=== PATIENT | male | born 1965 | race Caucasian/White ===

== ENCOUNTER 2016-06-11 19:04 | Emergency (ER) | payer MEDICAID ==
[2016-06-11 19:14] VITALS: BP 120/81; PULSE 66; RESP 16; TEMP 97.9; O2SAT 96
== END 2016-06-11 20:30 | disposition left against medical advice (07) ==
LOC: CED 19:04
DX: K08.9 Disorder of teeth and supporting structures, unspecified (principal); Z53.21 Procedure and treatment not carried out due to patient leaving prior to being seen by health care provider

== ENCOUNTER 2016-07-23 10:00 | Day surgery (SDC) | payer MEDICAID ==
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
[2016-07-23] MEDS ORDERED: LIDOCAINE 2% JELLY 20 ML (UROJECT) ONE (10:12)
[2016-07-23] MEDS ORDERED: LR 1,000 ML IV ONE (10:44)
[2016-07-23] MEDS ORDERED: LIDOCAINE 1% 5 ML SDV ID PRN (10:44)
[2016-07-23] MEDS ORDERED: LIDOCAINE 1% 2 ML INJ ONE (10:49)
[2016-07-23] MEDS ORDERED: D5W LR 1,000 ML IV SCH (11:00)
[2016-07-23] MEDS ORDERED: ceFAZolin 2 GM/DEXTROSE 100 ML IV ONE (11:00)
[2016-07-23] MEDS ORDERED: MIDAZOLAM 2 MG/2 ML VIAL ONE (11:53)
[2016-07-23] MEDS ORDERED: fentaNYL 250 MCG/5 ML INJ ONE (11:59)
[2016-07-23] MEDS ORDERED: PROPOFOL 200 MG/20 ML VIAL ONE ×3 (11:59→12:12)
[2016-07-23] MEDS ORDERED: ROCURONIUM 50 MG/5 ML VIAL ONE (12:12)
[2016-07-23] MEDS ORDERED: GLYCOPYRROLATE 0.2 MG/1 ML VIAL ONE ×2 (13:46→13:50)
[2016-07-23] MEDS ORDERED: NEOSTIGMINE METHYLSULFATE 5 MG/5 ML SYR ONE (13:46)
[2016-07-23] MEDS ORDERED: ONDANSETRON 4 MG/2 ML VIAL ONE (13:51)
[2016-07-23] MEDS ORDERED: DEXAMETHASONE 4 MG/ML VIAL ONE (13:51)
--- NOTE | 2016-07-23 14:11 | GOP ---
[f rep st] OPERATIVE REPORT DATE OF OPERATION: 07/23/2016 SURGEON: Remi Castrejon MD ANESTHESIA: General anesthesia. ANESTHESIOLOGIST: Dr. Mortensen PREOPERATIVE DIAGNOSIS: Bladder calculi with foreign body. POSTOPERATIVE DIAGNOSIS: Bladder calculi with foreign body. PROCEDURE PERFORMED: Laser lithotripsy of the stone, and extraction of the foreign body and the sto ne. FINDINGS: DESCRIPTION OF PROCEDURE: After general anesthesia and appropriate time-out, he had the cystoscope passed to his bladder. He had did have some meatal stenosis that was dilated so it could accommodat e the 22-Turkmen cystoscope. At that point, I used a holmium laser set at 15 pulses per second, 24 w atts and laser time was 1 hour 20 minutes. Total energy was 79,252 joules. I extracted the magneti c male urethral dildo from the bladder, and then all the stones were extracted with the [employer] evacua tor. At the end of the procedure, there was no significant trauma to the bladder, no perforation of the bladder, ureteral orifices are normal and there are no residual stones. Uro-Jet placed in his urethra, and Martínez catheter placed. He will be discharged home, to have follow up with me in the of [facility] in 1 month. No complications. Specimens sent to Pathology. /[id number]/MODL
[2016-07-28 18:24] LABS: SOURCE OF STONE BLADDER
[2016-07-28 18:25] LABS: NIDUS NOT OBSERVED
== END 2016-07-23 15:50 | disposition home health service (06) ==
LOC: FSGY 10:00
PROVIDERS: ATTEND Specialist
PROC: 0TPB8DZ Removal of Intraluminal Device from Bladder, Via Natural or Artificial Opening Endoscopic (ICD-10-PCS; principal; 2016-07-23 11:45)
PROC: 0TCB8ZZ Extirpation of Matter from Bladder, Via Natural or Artificial Opening Endoscopic (ICD-10-PCS; principal; 2016-07-23 11:45)
DX: N21.0 Calculus in bladder (principal); T19.0XXA Foreign body in urethra, initial encounter; K21.9 Gastro-esophageal reflux disease without esophagitis; F17.200 Nicotine dependence, unspecified, uncomplicated
CPT/HCPCS: 82365-90; J0690; J1100; J2250; J2405; J2704; J2710; J3010

== ENCOUNTER 2016-11-12 18:08 | Emergency (ER) | payer MEDICAID ==
--- NOTE | 2016-11-12 18:15 | EDPHY ---
H & P HPI/ROS: HPI CHIEF COMPLAINT: Dental pain HISTORY OF PRESENT ILLNESS: This patient is a 51-year-old male, he presents emergency room requesting pain control for his decaying right upper tooth. He is due to have a root canal on the 5th. States he has been taking too much ibuprofen it is upsetting his stomach. He is requesting a stronger pain medicine. Unable to sleep. Denies any fever, throat pain or trouble swallowing. Denies any daily medical history. Past Medical History: Denies significant medical history Past Surgical History: Denies significant surgical history Social History: Denies alcohol, drugs does smoke tobacco. Family History: Noncontributory ROS REVIEW OF SYSTEMS: A comprehensive 10 point review of systems is otherwise negative aside from elements mentioned in the history of present illness. Exam Constitutional triage nursing summary reviewed, vital signs reviewed, awake/ alert. Eyes normal conjunctivae and sclera, EOMI, PERRLA. HENT oropharynx: Right upper dental pain. Under right-sided upper jaw line there is a premolar, tooth 6. Decayed. Fractured normal inspection, atraumatic , moist mucus membranes, no epistaxis, neck supple/ no meningismus, no raccoon eyes. Respiratory clear to auscultation bilaterally, normal breath sounds, no respiratory distress, no wheezing. Cardiovascular rate normal, regular rhythm, no murmur, no edema, distal pulses normal. Gastrointestinal soft, non-tender, no rebound, no guarding, normal bowel sounds, no distension, no pulsatile mass. Genitourinary no CVA tenderness. Musculoskeletal no midline vertebral tenderness, full range of motion, no calf swelling, no tenderness of extremities, no meningismus, good pulses, neurovascularly intact. Skin pink, warm, & dry, no rash, skin atraumatic. Neurologic awake, alert and oriented x 3, AAOx3, moves all 4 extremities equally, motor intact, sensory intact, CN II-XII intact, normal cerebellar, normal vision, normal speech. Psychiatric normal mood/affect. Heme/Lymph/Immune no lymphadenopathy. Differential Diagnosis: Includes but is not limited to in a particular order dental decay, dental caries, apical abscess, pulpitis Medical Decision Making: Plan for this patient pain control. Era prescription given. He understands this is a limited supply of narcotic pain medicine. And then emergency rooms do not distribute narcotic pain medicine I do recommend he follows up with his dentist or primary care doctor. He understands this. Source: Patient - Personal History Tetanus Vaccine Date: < 10 years - Medical/Surgical History Hx Asthma: No Hx Chronic Respiratory Disease: No Hx Diabetes: No Hx Cardiac Disease: No Hx Renal Disease: No Hx Cirrhosis: No Hx Alcoholism: No Hx HIV/AIDS: No Hx Splenectomy or Spleen Trauma: No Other PMH: LEFT SHOULDER PAIN. TOOTH REMOVAL -- AT [facility]. Acid reflux, Chronic UTI, urethral blockage - Social History Smoking Status: Heavy smoker Constitutional: Initial Vital Signs Temperature (C) 36.7 C 11/12/16 18:10 Heart Rate 117 H 11/12/16 18:10 Respiratory Rate 16 11/12/16 18:10 Blood Pressure 147/91 H 11/12/16 18:10 O2 Sat (%) 95 11/12/16 18:10 O2 Delivery Mode Room Air Allergies/Adverse Reactions: haloperidol [From Haldol] Allergy (Severe, Verified 07/08/16 16:00) tongue swelling haloperidol lactate [From Haldol] Allergy (Severe, Verified 07/08/16 16:00) tongue swelling Home Medications: Medication Instructions Recorded Hydrocodone/APAP 5/325 [Era 1 - 2 tab PO Q6H PRN #20 tab 11/12/16 5/325 (*)] Departure - Departure Disposition: Home, Routine, Self-Care Clinical Impression: Pain, dental Condition: Good Instructions: Toothache (ED) Additional Instructions: 1. Please follow up with her dentist as previously directed. Referrals: RANDAL MURRELL,Ami [Primary Care Provider] - As per Instructions Prescriptions: Hydrocodone/APAP 5/325 [Era 5/325 (*)] 1 - 2 tab PO Q6H PRN #20 tab PRN Reason: Pain, Breakthrough
[2016-11-12 18:17] VITALS: BP 147/91; PULSE 117; RESP 16; TEMP 98.1; O2SAT 95
== END 2016-11-12 18:36 | disposition home or self-care (01) ==
LOC: CED 18:08
DX: K08.89 Other specified disorders of teeth and supporting structures (principal); F17.200 Nicotine dependence, unspecified, uncomplicated

== ENCOUNTER 2017-01-11 18:01 | Emergency (ER) | payer MEDICAID ==
[2017-01-11 18:18] VITALS: RESP 16
[2017-01-11] MEDS ORDERED: KETOROLAC 15 MG/1 ML SDV IM ONE (19:07)
[2017-01-11] MEDS ORDERED: LIDOCAINE 5% 1 EA PATCH TD ONE (19:07)
[2017-01-11] MEDS ORDERED: CYCLOBENZAPRINE 10 MG TAB PO ONE (19:07)
--- NOTE | 2017-01-11 19:41 | EDPHY ---
H & P Time Seen by Provider: 01/11/17 18:56 HPI/ROS: CHIEF COMPLAINT: Shoulder injury, shoulder pain HISTORY OF PRESENT ILLNESS: This is a 51-year-old male presents the emergency department requesting a refill of pain medications. Patient injured his right shoulder 5 days ago. He reports that he was working on a fence when the wind blew the fence over, and his right shoulder was hyper rotated and twisted by the fence in the wind. He reports being evaluated by a physician, told he might have a rotator cuff tear, and been given referral to Orthopedic surgery. Patient has appointment with orthopedic surgeries in 2 days. He has been using lidocaine patches and naproxen but states that his pain is not relieved with those medications. REVIEW OF SYSTEMS: Aside from elements discussed in the HPI, a comprehensive 10-point review of systems was reviewed and is negative. PAST MEDICAL HISTORY: Cervical spine fracture, chronic UTI. SOCIAL HISTORY: Heavy smoker. GENERAL APPEARANCE: Well-developed well-nourished. Right shoulder is in a sling. No obvious distress. FOCUSED EXAM OF right upper extremity: No clavicular tenderness. No tenderness at the AC joint. Patient has a lidocaine patch over the posterior shoulder. Discomfort with internal and external rotation. Pain and discomfort with ABduction. No deformities. Passive range of motion is normal. No abrasions. No lacerations. Distal neurovascularly intact. Brisk capillary refill. Deltoid sensation is normal. Normal radial and ulnar pulses. Smoking Status: Heavy smoker Constitutional: Initial Vital Signs Temperature (C) 36.4 C 01/11/17 18:06 Heart Rate 86 01/11/17 18:06 Respiratory Rate 16 01/11/17 18:06 Blood Pressure 137/97 H 01/11/17 18:06 O2 Sat (%) 94 01/11/17 18:06 O2 Delivery Mode Room Air O2 (L/minute) 94 Allergies/Adverse Reactions: haloperidol [From Haldol] Allergy (Severe, Verified 07/08/16 16:00) tongue swelling haloperidol lactate [From Haldol] Allergy (Severe, Verified 07/08/16 16:00) tongue swelling Home Medications: Medication Instructions Recorded Hydrocodone/APAP 5/325 [[place] 1 tab PO Q6H PRN #10 tab 01/11/17 5/325 (RX)] Lidocaine 5% [Lidoderm 5% Patch 1 ea TD Q12 PRN #8 patch 01/11/17 (*)] MOTRIN 01/11/17 Naprosyn 01/11/17 oxyCODONE/APAP 5/325 [Percocet 1 tab PO QID PRN #12 tab 01/11/17 5/325 (*)] oxyCODONE/APAP 5/325 [Percocet 1 tab PO QID PRN #12 tab 01/11/17 5/325 (*)] Medical Decision Making ED Course/Re-evaluation: Patient reports he last took naproxen 12 hours ago. He was given a lidocaine patch, Flexeril for muscle spasm, and Toradol 30 mg IM. [place] prescription drug monitoring program was accessed. Patient's history is consistent with the findings, last prescription for narcotics was in October. Patient was discharged description for #12. Percocet tablets. He was informed that no further narcotics will be prescribed from the emergency department. He will need to work with orthopedic surgeon in order to manage his pain. Differential Diagnosis: Differential diagnoses for the patient's symptom complex was considered including but not limited to rotator cuff tear, shoulder sprain, shoulder dislocation, drug-seeking behavior. - Data Points Medications Given: Discontinued Medications Cyclobenzaprine HCl (Flexeril) 10 mg PO EDNOW ONE Stop: 01/11/17 19:08 Last Admin: 01/11/17 19:56 Dose: 10 mg Ketorolac Tromethamine (Toradol) 30 mg IM EDNOW ONE Stop: 01/11/17 19:08 Last Admin: 01/11/17 20:00 Dose: 30 mg Lidocaine (Lidoderm 5%) 1 ea TD EDNOW ONE Stop: 01/11/17 19:08 Last Admin: 01/11/17 20:01 Dose: 1 ea Miscellaneous Information (Patch Removal) 1 ea TD DAILY21 JOSH Stop: 07/10/17 20:59 Last Admin: 01/11/17 20:16 Dose: 1 ea Departure - Departure Disposition: Home, Routine, Self-Care Clinical Impression: Pain in joint, shoulder region Qualifiers: Laterality: right Qualified Code(s): M25.511 - Pain in right shoulder Condition: Good Instructions: Shoulder Pain (ED) Additional Instructions: We will treat your shoulder pain with immobilization, nonsteroidal anti- inflammatories and lidocaine patches for discomfort. I recommend Ibuprofen (Motrin, Advil) or Naproxen Sodium (Aleve) for pain and anti-inflammatory effects. You may take either one, but do not take both. Your dose is: Ibuprofen 600 mg every 6-8 hours with food. OR Naproxen Sodium (Aleve) 220 mg every 12 hours. Use a lidocaine patch every 12 hours. Okay to use oxycodone as needed for severe pain. Followup with the orthopedic surgeon who you have previously been evaluated. No further opiate medications will be provided from the emergency department. Any further opiate pain medications and a care plan for your pain will need to be managed by the orthopedic surgeon. Referrals: NONE *PRIMARY CARE P,. [Primary Care Provider] - As per Instructions Prescriptions: Hydrocodone/APAP 5/325 [[place] 5/325 (RX)] 1 tab PO Q6H PRN #10 tab PRN Reason: Pain Lidocaine 5% [Lidoderm 5% Patch (*)] 1 ea TD Q12 PRN #8 patch PRN Reason: Pain, Breakthrough oxyCODONE/APAP 5/325 [Percocet 5/325 (*)] 1 tab PO QID PRN #12 tab PRN Reason: Pain oxyCODONE/APAP 5/325 [Percocet 5/325 (*)] 1 tab PO QID PRN #12 tab PRN Reason: Pain
[2017-01-11] MEDS ORDERED: KETOROLAC 15 MG/1 ML SDV ONE (19:59)
[2017-01-11] MEDS: PATCH REMOVAL 1 EA PATCH TD SCH ×2 (20:01→20:16)
[2017-01-11 20:21] VITALS: TEMP 98.4
[2017-01-11 20:24] VITALS: BP 123/83; PULSE 83; O2SAT 94
== END 2017-01-11 20:25 | disposition home or self-care (01) ==
LOC: CED 18:01
DX: M25.511 Pain in right shoulder (principal); F17.200 Nicotine dependence, unspecified, uncomplicated
CPT/HCPCS: J1885

== ENCOUNTER 2017-01-27 15:27 | Emergency (ER) | payer MEDICAID ==
[2017-01-27 15:59] VITALS: BP 127/78; PULSE 77; RESP 18; TEMP 98.2; O2SAT 95
--- NOTE | 2017-01-27 16:06 | EDPHY ---
H & P Time Seen by Provider: 01/27/17 15:53 HPI/ROS: HPI Spider bites on body. 51-year-old male by private vehicle with his significant other. This patient complains of spider bites on his scalp, his right shoulder and his lower back. He reports he has had these for over a month. He reports that they are itchy and irritating. He also states that he has a torn rotator cuff left shoulder. He reports he is out of his Percocet any is asking for Percocet. He has not had a fever. He denies any other complaints. ROS: Constitutional: No fever, no chills. No weakness. Respiratory: No cough. No shortness of breath. Cardiac: No chest pain, no palpitations. Gastrointestinal: No abdominal pain, no vomiting, no diarrhea. Musculoskeletal: No back pain. No neck pain. As above. Skin: As above. Neurological: No headache. No focal weakness or altered sensation. Past medical history: Chronic UTI, acid reflux, urethral blockage. Social history: Smoker. Here with his girlfriend. Denies alcohol. Physical Exam: General Appearance: Alert, no distress. This patient is responding to questions appropriately and in full sentences. This patient appears well- hydrated and well-nourished. Eyes: Pupils equal and round no pallor or injection. No lid edema, erythema or injection. Neurological: Motor sensory function is grossly intact. Cranial nerves are normal. Gait is normal. Skin: Warm and dry, no rashes. He has a superficial abrasion to the right lateral shoulder about the size of a silver dollar. He also has a superficial abrasion like lesion which is about the size of a nickel to the left lower back mid lumbar area. He has a superficial abrasion which might represent early Kareon to the mid occipital scalp. None of these lesions have any significant surrounding erythema or edema indicative of a cellulitis. There is no fluctuance or drainable abscess. Musculoskeletal: Neck is supple and nontender. Extremities are symmetrical. All joints range without pain or impingement. Psychiatric: No agitation. No depression. Database: EKG: Imaging: Procedures: Emergency department course: Vital signs reviewed and are normal. I explained to the patient that antibiotics were not indicated. He is concerned he may have a staph infection. I explained I would prescribe him mupirocin ointment to apply to these skin lesions. I explained to him that I would prescribe him lidocaine patches for his shoulder but not Percocet. He is to follow up with his primary care physician for re-evaluation and further management. Return to emergency department precautions reviewed. All of his questions were answered. He was discharged in good condition. Differential Diagnosis: The differential diagnosis on this patient includes but is not limited to superficial skin abrasions, Kareon. Abscess, brown recluse spider bite, cellulitis unlikely. This represents a partial list of diagnoses considered. These considerations are based on history, physical exam, past history, reassessment and diagnostic testing. Smoking Status: Heavy smoker Constitutional: Initial Vital Signs Temperature (C) 36.8 C 01/27/17 15:57 Heart Rate 77 01/27/17 15:57 Respiratory Rate 18 01/27/17 15:57 Blood Pressure 127/78 H 01/27/17 15:57 O2 Sat (%) 95 01/27/17 15:57 O2 Delivery Mode Room Air Allergies/Adverse Reactions: haloperidol [From Haldol] Allergy (Severe, Verified 07/08/16 16:00) tongue swelling haloperidol lactate [From Haldol] Allergy (Severe, Verified 07/08/16 16:00) tongue swelling Home Medications: Medication Instructions Recorded Hydrocodone/APAP 5/325 [[place] 1 tab PO Q6H PRN #10 tab 01/11/17 5/325 (RX)] Lidocaine 5% [Lidoderm 5% Patch 1 ea TD Q12 PRN #8 patch 01/11/17 (*)] MOTRIN 01/11/17 Naprosyn 01/11/17 oxyCODONE/APAP 5/325 [Percocet 1 tab PO QID PRN #12 tab 01/11/17 5/325 (*)] oxyCODONE/APAP 5/325 [Percocet 1 tab PO QID PRN #12 tab 01/11/17 5/325 (*)] Lidocaine 5% [Lidoderm 5% Patch 1 ea TD DAILY #8 patch 01/27/17 (*)] Mupirocin 22 gm TP BID #1 oint...g. 01/27/17 Departure - Departure Disposition: Home, Routine, Self-Care Clinical Impression: Skin abrasion Condition: Good Instructions: Abrasion (ED) Additional Instructions: Read and follow provided instructions. Follow-up with your primary care physician in 1-2 days for re-evaluation. Take medication as prescribed. Mupirocin ointment: Apply to affected areas 2-3 times daily. Return to the emergency department for fever, pain, redness and swelling spreading from the borders of your abrasions or other serious concerns. Referrals: NONE *PRIMARY CARE P,. [Primary Care Provider] - As per Instructions Prescriptions: Lidocaine 5% [Lidoderm 5% Patch (*)] 1 ea TD DAILY #8 patch Mupirocin 22 gm TP BID #1 oint...g.
== END 2017-01-27 16:23 | disposition home or self-care (01) ==
LOC: CED 15:27
DX: S40.211A Abrasion of right shoulder, initial encounter (principal); S30.810A Abrasion of lower back and pelvis, initial encounter; S00.01XA Abrasion of scalp, initial encounter; F17.200 Nicotine dependence, unspecified, uncomplicated; W57.XXXA Bitten or stung by nonvenomous insect and other nonvenomous arthropods, initial encounter

== ENCOUNTER 2017-03-22 09:47 | Emergency (ER) | payer MEDICAID ==
[2017-03-22 09:54] VITALS: TEMP 97.5
--- NOTE | 2017-03-22 10:33 | EDPHY ---
H & P Smoking Status: Heavy smoker Time Seen by Provider: 03/22/17 10:02 HPI/ROS: CHIEF COMPLAINT: Right shoulder injury HISTORY OF PRESENT ILLNESS: 51-year-old male presents to the emergency department with injury to his right shoulder. The patient was going down some stairs last night and caught himself with his right arm and hyperextended his right shoulder. Patient has history of chronic pain associated with right shoulder and was told that he tore his rotator cuff a few months ago. He has not sought any treatment or follow up with orthopedic surgery because he was apparently referred to [facility] in [facility] and he did not have enough bus money to get himself there. Denies numbness or tingling in his fingers, pain in his right wrist or elbow. He has pain especially with range of motion. Having trouble sleeping. REVIEW OF SYSTEMS: Constitutional: No fever, no chills. Eyes: No double or blurry vision. ENT: No sore throat. Respiratory: No cough, no shortness of breath. Cardiac: No chest pain. Gastrointestinal: No abdominal pain, vomiting or diarrhea. Genitourinary: No dysuria. Musculoskeletal: No neck or back pain. Skin: No rashes. Neurological: No headache. (Karlee French) Past Medical/Surgical History: Orthopedic injuries (Manolo,Karlee M) Social History: Single and lives in [place] (Karlee French M) Physical Exam: General Appearance: Alert, no distress. Eyes: Pupils equal and round. Extraocular motions are all intact. ENT: Mouth: Mucous membranes moist. Respiratory: No wheezing, rhonchi, or rales, lungs are clear to auscultation. Cardiovascular: Regular rate and rhythm. Gastrointestinal: Abdomen is soft and nontender, no masses, no rebound or guarding, bowel sounds normal. Neurological: Alert and oriented x 3, cranial nerves II through XII grossly intact Skin: Warm and dry, no rashes. Musculoskeletal: Nontender to palpate along the cervical, thoracic or lumbar spine. Neck is supple. Extremities: Pain with range of motion of the right shoulder. He has limited abduction and limited internal rotation as well as external rotation secondary to pain. He has limited flexion. He has normal and equal strength for the upper extremities bilaterally. Radial, median, and ulnar nerves are all intact. Psychiatric: Patient is oriented X 3, there is no agitation. (Karlee French) Constitutional: Initial Vital Signs Temperature (C) 36.4 C 03/22/17 09:50 Heart Rate 57 L 03/22/17 09:50 Respiratory Rate 16 03/22/17 09:50 Blood Pressure 123/85 H 03/22/17 09:50 O2 Sat (%) 98 03/22/17 09:50 O2 Delivery Mode Room Air Allergies/Adverse Reactions: haloperidol [From Haldol] Allergy (Severe, Verified 03/22/17 09:50) tongue swelling haloperidol lactate [From Haldol] Allergy (Severe, Verified 03/22/17 09:50) tongue swelling Home Medications: Medication Instructions Recorded Cyclobenzaprine [Flexeril] 10 mg PO TIDPRN PRN #12 tab 03/22/17 Medical Decision Making Procedures: Patient was placed in a sling and examined post application in good placement with normal STRATEGIC DEVELOPMENT MANAGER. (Karlee French) ED Course/Re-evaluation: The patient was evaluated and managed by the physician's warehouse assistant. My cosignature indicates that I reviewed the chart and I agree with the findings and plan of care as documented. I am the secondary supervising physician. ( Reshma Curiel) 51-year-old male presents with ongoing right shoulder pain. He has a known history of a torn rotator cuff in the same shoulder. He denies any direct trauma or fall. I do not think x-rays are indicated and the patient agrees. Patient was given referral to orthopedic surgeon on-call. I also explained to the patient that narcotic medication will not be dispensed. He was given prescription for Flexeril. He already has prescription lidocaine patches. He was also placed in a sling. (Karlee French) Differential Diagnosis: Including but not limited to rotator cuff injury, sprain, strain, contusion, fracture, dislocation (Karlee French) Departure - Departure Disposition: Home, Routine, Self-Care Clinical Impression: Sprain of right shoulder Qualifiers: Encounter type: initial encounter Shoulder sprain type: unspecified sprain Qualified Code(s): S43.401A - Unspecified sprain of right shoulder joint, initial encounter Condition: Good Instructions: Shoulder Sprain (ED) Additional Instructions: Sling for comfort and support. Ibuprofen 600mg every 8 hours for pain as directed. Follow up with orthopedic surgeon on-call. You may continue your lidocaine patches as needed for pain relief. Referrals: Alexandre Quinn MD [Medical Doctor] - 5-7 days, call for appt. (Orthopedic surgeon on-call) Prescriptions: Cyclobenzaprine [Flexeril] 10 mg PO TIDPRN PRN #12 tab PRN Reason: P.r.n. spasms
[2017-03-22 10:42] VITALS: BP 120/78; PULSE 72; RESP 14; O2SAT 96
== END 2017-03-22 10:42 | disposition home or self-care (01) ==
DX: S43.401A Unspecified sprain of right shoulder joint, initial encounter (principal); F17.200 Nicotine dependence, unspecified, uncomplicated; X50.9XXA Other and unspecified overexertion or strenuous movements or postures, initial encounter; Y92.89 Other specified places as the place of occurrence of the external cause; Y93.89 Activity, other specified
CPT/HCPCS: A4565

== ENCOUNTER → 2017-04-08 | Outpatient (CLI) | payer MEDICAID | LOC: FIMAGING 18:40 | PROVIDERS: ATTEND Orthopaedic Surgery | DX: Z01.818 Encounter for other preprocedural examination (principal); S43.491A Other sprain of right shoulder joint, initial encounter; M75.111 Incomplete rotator cuff tear or rupture of right shoulder, not specified as traumatic; M75.21 Bicipital tendinitis, right shoulder; M19.011 Primary osteoarthritis, right shoulder ==

== ENCOUNTER 2017-11-19 20:21 | Emergency (ER) | payer MEDICAID ==
[2017-11-19 20:38] VITALS: BP 140/81
[2017-11-19] MEDS ORDERED: CEPHALEXIN 500MG PREPACK#4 BTL TAKEHOME ONE (20:55)
--- NOTE | 2017-11-19 20:58 | EDPHY ---
H & P Time Seen by Provider: 11/19/17 20:44 HPI/ROS: CHIEF COMPLAINT: Spider bites HISTORY OF PRESENT ILLNESS: This is a 52-year-old male presents to the emergency department reporting that he believes he has been bitten by multiple spiders. He complains of a the area of tenderness, redness, and swelling on the back of his head as well as in the lower pubic area. He states that these have occurred over the last 2-3 days. Denies any fevers or chills. Reports that the area is very tender. Reports that he has popped multiple pustules. He believes these are all spider bites. He states that he frequently has spider bites. Denies shortness of breath, nausea or vomiting. Denies any urinary complaints. Has been taking ibuprofen for discomfort without any improvement. States he knows he needs antibiotics. REVIEW OF SYSTEMS: A comprehensive 10 system review of systems was reviewed and is otherwise negative aside from elements mentioned in the history of present illness. PAST MEDICAL HISTORY: Patient has been seen in the emergency department on numerous occasions for various skin complaints. Possible rotator cuff injury SOCIAL HISTORY: Heavy smoker. Note: Patient would not disrobed to let me examine him except for an area on his scalp and an area on the lower suprapubic region. He was reluctant to consider other diagnoses except for spider bites. He would only allow ED visibly inspect the areas of his skin as below. VITAL SIGNS: see nurse's notes. Afebrile. GENERAL: Well-developed, well-nourished, reports severe pain. SCALP: Patient has a patch approximately 3 cm in diameter of erythema, slight swelling, and scaling on his scalp. PUBIC AREA: 10 cm x 5 cm area slightly raised, erythematous, multiple small pustules, questionable scaling, patient reports that is tender. The area has been cover with calamine lotion. Patient will not allow me to examine it further. There do appear to be lesions associated with hair follicles. There are other small pustule lesions not associated with hair follicles. Smoking Status: Heavy smoker Constitutional: Initial Vital Signs Temperature (C) 37.0 C 11/19/17 20:33 Heart Rate 81 11/19/17 20:33 Respiratory Rate 16 11/19/17 20:33 Blood Pressure 140/81 H 11/19/17 20:33 O2 Sat (%) 95 11/19/17 20:33 O2 Delivery Mode Room Air Allergies/Adverse Reactions: haloperidol [From Haldol] Allergy (Severe, Verified 03/22/17 09:50) tongue swelling haloperidol lactate [From Haldol] Allergy (Severe, Verified 03/22/17 09:50) tongue swelling Home Medications: Medication Instructions Recorded Cyclobenzaprine [Flexeril] 10 mg PO TIDPRN PRN #12 tab 03/22/17 Cephalexin [Keflex (RX)] 500 mg PO QID 7 Days cap 11/19/17 Medical Decision Making ED Course/Re-evaluation: 52-year-old male presents reporting multiple spider bites. On review of his prior emergency department records he has been seen on other occasions for skin lesions. I explained him that I do not believe that these are multiple spider bites. I do believe that the patient has a significant impetigo or folliculitis type process in the pubic region, throughout his pubic hair. I do not know if he has involvement of the scrotum as the patient would not allow me to examine further. Patient also has an area on his scalp which again appears either impetigo or perhaps tinea. I advised the patient to wash off the calamine lotion, apply a very thin layer of hydrocortisone 1% cream to the areas, begin taking Keflex. He was advised to follow up [facility] or with a lumber mover in the next several days to ensure that this treatment was improving his symptoms. Patient stated that he was in a significant amount of discomfort that ibuprofen was not treating. I told him I would not give him narcotics. Differential Diagnosis: Differential diagnosis of the patient's rash was considered including but not limited to tender data, impetigo, folliculitis, insect bites, psoriasis, eczema. - Data Points Medications Given: Discontinued Medications Cephalexin (Keflex 500 Mg Prepack#4) 1 btl TAKEHOME EDNOW ONE PRN Reason: Protocol Stop: 11/19/17 20:56 Last Admin: 11/19/17 21:15 Dose: 1 btl Hydrocortisone (Hydrocortisone 1%) 1 aniket TP BID PRN PRN Reason: Itching Stop: 05/18/18 21:03 Last Admin: 11/19/17 21:16 Dose: 1 aniket Departure - Departure Disposition: Home, Routine, Self-Care Clinical Impression: Cellulitis, Rash, Dermatitis Condition: Good Instructions: Cephalexin (By mouth), Hydrocortisone (On the skin), Impetigo (ED ), Folliculitis (ED) Additional Instructions: 1. Please use Dial Gold in the shower. 2. Take antibiotics as directed. Keflex 500 mg by mouth 4 times a day for 7 days. 3. Use a small amount of topical hydrocortisone 1% cream 2 times a day. This is available [id number]. Use a small amount on the area of rash. 4. You may use Benadryl 25 mg to 50 mg up to 3 times a day for itching. 5. Do not pop any pustules which occur. 6. Return to the emergency department or seek care urgently if you develop a fever, increased swelling and redness despite the antibiotics, nausea, vomiting , diarrhea, or other concerns. 7. Please follow up with the primary care physician for further evaluation. You been given referral to both a lumber mover as well as to [facility]/ [facility]. Please follow up at [facility] [phone] or at the [facility], . You may let them know that you were referred to lumber mover from the emergency department Referrals: NONE *PRIMARY CARE P,. [Primary Care Provider] - As per Instructions [facility],. [Clinic] - As per Instructions [facility],. [Clinic] - As per Instructions Prescriptions: Cephalexin [Keflex (RX)] 500 mg PO QID 7 Days cap
[2017-11-19] MEDS ORDERED: HYDROCORTISONE 1% CREAM TP ONE (21:01)
[2017-11-19] MEDS ORDERED: HYDROCORTISONE 1% CREAM TP PRN (21:04)
== END 2017-11-19 21:23 | disposition home or self-care (01) ==
LOC: CED 20:21
DX: L03.90 Cellulitis, unspecified (principal); L30.9 Dermatitis, unspecified; R21 Rash and other nonspecific skin eruption; F17.200 Nicotine dependence, unspecified, uncomplicated

== ENCOUNTER 2018-01-25 15:21 | Emergency (ER) | payer MEDICAID ==
--- NOTE | 2018-01-25 15:44 | EDPHY ---
H & P Smoking Status: Heavy smoker Time Seen by Provider: 01/25/18 15:33 HPI/ROS: CHIEF COMPLAINT: Left otalgia, left adenopathy HISTORY OF PRESENT ILLNESS: 52-year-old immunocompetent male complaining of 3 days of left otorrhea, otalgia, pain with a palpation of the tragus in movement of the auricle. Also notes pain in the corresponding lymph nodes. No hearing loss. No sore throat. PRIMARY CARE PROVIDER: REVIEW OF SYSTEMS: 10 systems reviewed and are negative with exception of illness mentioned in the history of present illness PHYSICAL EXAM (Prior to examination, patient consented to physical exam, hands were washed and my usual and customary physical exam procedures followed) 1) GENERAL: Well-developed, well-nourished, alert and oriented. Appears to be in no acute distress. 2) HEAD: Normocephalic 3) HEENT: sclera anicteric. Right ear clear EAC. Left ear: Pain with movement of the auricle and tragus. No signs of cellulitis. Positive otorrhea noted. Pain with placement of the speculum in the external auditory canal. Tympanic membrane incompletely visualized secondary to cerumen. Mastoid bilaterally nontender non boggy. Oropharynx clear with no tonsillar enlargement or exudate, no trismus no drooling. No facial lesions. 4) LUNGS: Breathing comfortably. [5) neck: Positive cervical adenopathy (Fletcher,Areli Angelika) Constitutional: Initial Vital Signs Temperature (C) 36.5 C 01/25/18 15:25 Heart Rate 96 01/25/18 15:25 Respiratory Rate 16 01/25/18 15:25 Blood Pressure 110/80 01/25/18 15:25 O2 Sat (%) 97 01/25/18 15:25 O2 Delivery Mode Room Air Allergies/Adverse Reactions: haloperidol [From Haldol] Allergy (Severe, Verified 01/25/18 15:24) tongue swelling haloperidol lactate [From Haldol] Allergy (Severe, Verified 01/25/18 15:24) tongue swelling Home Medications: Medication Instructions Recorded Ciprofloxacin HCl/Dexameth 4 drop OT BID #1 drops.susp 01/25/18 [Ciprodex Otic Suspension] MDM/Departure - MDM ED Course/Re-evaluation: Patient has evidence of left otitis externa. Doubt mastoiditis. Doubt malignant otitis externa. Unable to visualize the tympanic membrane secondary to cerumen. Discussed cerumen disimpaction however he is unable to tolerate this. Will administer Ciprodex drops. Given my usual and customary discharge precautions instructions. Care of patient under supervision of secondary supervising physician Dr Adam Stoner . (Fletcher,[facility]) I did not see this patient while he was in the emergency department. However his care was discussed with the PA while the patient is in the department. I agree with treatment plan and management (Adam Stoner S) - Depart Disposition: Home, Routine, Self-Care Clinical Impression: Left otitis externa Qualifiers: Otitis externa type: unspecified type Chronicity: acute Qualified Code(s): H60.502 - Unspecified acute noninfective otitis externa, left ear Condition: Good Instructions: Otitis Externa (ED) Additional Instructions: Do not place foreign objects in your ear. Return to the ER if you develop new or worsening symptoms. Prescriptions: Ciprofloxacin HCl/Dexameth [Ciprodex Otic Suspension] 4 drop OT BID #1 drops.susp Referrals: Parmjit Bullock MD [Medical Doctor] - 5-7 days, call for appt.
[2018-01-25 15:57] VITALS: BP 119/68
== END 2018-01-25 15:57 | disposition home or self-care (01) ==
DX: H60.502 Unspecified acute noninfective otitis externa, left ear (principal)

== ENCOUNTER 2018-02-14 11:26 | Emergency (ER) | payer MEDICAID ==
[2018-02-14] MEDS ORDERED: CARBAMIDE PEROXIDE 15 ML OTIC.BTL ONE (11:49)
[2018-02-14] MEDS ORDERED: SULFAMETHOX/TMP 800/160 MG 1 TAB PO ONE (11:57)
--- NOTE | 2018-02-14 12:00 | EDPHY ---
H & P Stated Complaint: L forearm x 1 wk and scalp spider bite x 3 wk and L ear plugged up x 1wk Time Seen by Provider: 02/14/18 11:38 HPI/ROS: CHIEF COMPLAINT: Spider bite, year clogged HISTORY OF PRESENT ILLNESS: The patient is a 52-year-old man with a history of frequent abscesses. He states that he has had spiders in his house and recently fumigated. He has an abscess on his scalp that is spontaneously draining and another 1 was left forearm that is more painful and erythematous. No fevers. He states that he has been through courses of antibiotics in the past that have helped. He has also had chlorine body washes which have helped. He also complains of some pressure in his left ear. He was recently treated with ear drops for what he says was a infected ear. He states that that improved however now he has a blockage. It is not painful. No tinnitus. No vision changes. No trauma. Severity: Moderate Modifying factors: None REVIEW OF SYSTEMS: Constitutional: denies: chills, fever, recent illness, recent injury EENTM: See HPI Respiratory: denies: cough, shortness of breath Cardiac: denies: chest pain, irregular heart rate, lightheadedness, palpitations Gastrointestinal/Abdominal: denies: abdominal pain, diarrhea, nausea, vomiting, blood streaked stools Genitourinary: denies: dysuria, frequency, hematuria, pain Musculoskeletal: denies: joint pain, muscle pain Skin: See HPI Neurological: denies: headache, numbness, paresthesia, tingling, dizziness, weakness Hematologic/Lymphatic: denies: blood clots, easy bleeding, easy bruising Immunologic/allergic: denies: HIV/AIDS, transplant 10 systems reviewed and negative except as noted EXAM: GENERAL: Well-appearing, well-nourished and in no acute distress. HEAD: Atraumatic, normocephalic. EYES: Pupils equal round and reactive to light, extraocular movements intact, sclera anicteric, conjunctiva are normal. ENT: Bilateral cerumen impaction, nares patent, oropharynx clear without exudates. Moist mucous membranes. NECK: Normal range of motion, supple without lymphadenopathy or JVD. LUNGS: Breath sounds clear to auscultation bilaterally and equal. No wheezes rales or rhonchi. HEART: Regular rate and rhythm without murmurs, rubs or gallops. ABDOMEN: Soft, nontender, normoactive bowel sounds. No guarding, no rebound. No masses appreciated. BACK: No CVA tenderness, no spinal tenderness, step-offs or deformities EXTREMITIES: Normal range of motion, no pitting or edema. No clubbing or cyanosis. NEUROLOGICAL: Cranial nerves II through XII grossly intact. Normal speech, normal gait. 5/5 strength, normal movement in all extremities, normal sensation , normal reflexes PSYCH: Normal mood, normal affect. SKIN: Small nickel sized abscess to left forearm dorsal aspect. Minimal erythema. Fluctuant. Small nickel sized abscess to scalp. Draining spontaneously. Several other previously healed wounds to the scalp as well causing bald spots. Source: Patient Exam Limitations: No limitations - Personal History Current Tetanus Diphtheria and Acellular Pertussis (TDAP): Yes Tetanus Vaccine Date: within 10 years - Medical/Surgical History Hx Asthma: No Hx Chronic Respiratory Disease: No Hx Diabetes: No Hx Cardiac Disease: No Hx Renal Disease: No Hx Cirrhosis: No Hx Alcoholism: No Hx HIV/AIDS: No Hx Splenectomy or Spleen Trauma: No Other PMH: Poss R rotator cuff inj since January. TOOTH REMOVAL -- AT HALFWAY. Acid reflux, Chronic UTI, urethral blockage - Family History Significant Family History: No pertinent family hx - Social History Smoking Status: Heavy smoker Alcohol Use: Sober Drug Use: None Constitutional: Initial Vital Signs Temperature (C) 36.5 C 02/14/18 11:36 Heart Rate 78 02/14/18 11:36 Respiratory Rate 16 02/14/18 11:36 Blood Pressure 129/85 H 02/14/18 11:36 O2 Sat (%) 96 02/14/18 11:36 O2 Delivery Mode Room Air Allergies/Adverse Reactions: haloperidol [From Haldol] Allergy (Severe, Verified 02/14/18 11:45) Pt reports tongue swelling haloperidol lactate [From Haldol] Allergy (Severe, Verified 02/14/18 11:45) Pt reports tongue swelling Home Medications: Medication Instructions Recorded Sulfamethox/Tmp 800/160 mg 1 tab PO BID #14 tab 02/14/18 [Bactrim Ds] Medical Decision Making Procedures: Procedure: Abscess drainage. The patient's abscess was located on the left arm. I obtained verbal consent from the patient to drain the abscess who was informed about the possibility of bleeding and pain. The abscess was incised with 11 blade scalpel and 3 cc of purulent drainage was expressed. I irrigated the wound and placed some packing. The patient tolerated the procedure well. The procedure was performed by myself. Procedure: Abscess drainage. The patient's abscess was located on the scalp. I obtained verbal consent from the patient to drain the abscess who was informed about the possibility of bleeding and pain. The abscess was incised with 11 blade scalpel and 2 cc of purulent drainage was expressed. I irrigated the wound and placed some packing. The patient tolerated the procedure well. The procedure was performed by myself. Patient's left ear was disimpacted with irrigation. Patient tolerated the procedure well. ED Course/Re-evaluation: Patient tolerated abscess drainage and irrigation of the ear well. He is happy and will start on antibiotics because of multiple sites of abscess. Discussed follow-up and indications for returning. Differential Diagnosis: Partial list of the Differential diagnosis considered include but were not limited to; abscess, cellulitis, cerumen impaction and although unlikely based on the history and physical exam, I also considered otitis externa, otitis media , meningitis, sepsis. I discussed these differential diagnoses and the plan with the patient as well as the usual and expected course. The patient understands that the diagnosis is provisional and that in medicine we are not always correct and that further workup is often warranted. Usual and customary warnings were given. All of the patient's questions were answered. The patient was instructed to return to the emergency department should the symptoms at all worsen or return, otherwise to followup with the physician as we discussed. - Data Points Medications Given: Discontinued Medications Carbamide Peroxide (Debrox) 5 drop LEFTEAR EDNOW ONE Stop: 02/14/18 12:15 Last Admin: 02/14/18 12:14 Dose: 5 drop Trimethoprim/Sulfamethoxazole (Bactrim Ds) 1 ea PO EDNOW ONE PRN Reason: Protocol Stop: 02/14/18 11:58 Last Admin: 02/14/18 12:18 Dose: 1 ea Departure - Departure Disposition: Home, Routine, Self-Care Clinical Impression: Abscess, Impacted cerumen, left ear Condition: Good Instructions: Cerumen Impaction (ED), Abscess (ED) Referrals: NONE *PRIMARY CARE P,. [Primary Care Provider] - As per Instructions Pepper Nuñez MD [[facility] [place]] - 2-3 days, if not improved Prescriptions: Sulfamethox/Tmp 800/160 mg [Bactrim Ds] 1 tab PO BID #14 tab
[2018-02-14] MEDS ORDERED: CARBAMIDE PEROXIDE 15 ML OTIC.BTL LEFTEAR ONE (12:14)
[2018-02-14 14:04] VITALS: BP 125/84
== END 2018-02-14 13:07 | disposition home or self-care (01) ==
LOC: CED 11:26
PROC: 0H90XZZ Drainage of Scalp Skin, External Approach (ICD-10-PCS; principal; 2018-02-14)
PROC: 3E1B78Z Irrigation of Ear using Irrigating Substance, Via Natural or Artificial Opening (ICD-10-PCS; principal; 2018-02-14)
PROC: 0H9EXZZ Drainage of Left Lower Arm Skin, External Approach (ICD-10-PCS; principal; 2018-02-14)
DX: L02.811 Cutaneous abscess of head [any part, except face] (principal); L02.414 Cutaneous abscess of left upper limb; H61.23 Impacted cerumen, bilateral

== ENCOUNTER 2018-02-28 22:34 | Emergency (ER) | payer MEDICAID ==
[2018-02-28 22:59] VITALS: BP 125/74
[2018-02-28] MEDS ORDERED: CLINDAMYCIN 150 MG CAP PO ONE (23:11)
--- NOTE | 2018-02-28 23:12 | EDPHY ---
H & P Stated Complaint: Skin lesions on arms/legs/scalp Time Seen by Provider: 02/28/18 22:40 HPI/ROS: 52 yo M presents c/o multiple skin lesions to his arms legs and scalp, several of them have had to be drained in the recent past he states they are spider bites. He has been on a course of Bactrim which he finished which was 7 days long. No fevers or chills. He also complains of fullness in his right ear for several days. Review of systems As per HPI General no fever no chills no weakness HEENT no eye pain no eye discharge. No eye redness, no sore throat Respiratory no cough, no shortness of breath Cardiac no chest pain, no peripheral edema GI no abdominal pain, no diarrhea, no constipation, no nausea, no vomiting no flank pain, no hematuria, no dysuria Musculoskeletal no myalgias, no joint pain Heme no easy bruising, no easy bleeding Endo no polyuria, no polydipsia Skin positive rashes, no pruritus Neuro no syncope, no dizziness, no headaches Psych is no suicidal ideation, no homicidal ideation Source: Patient Exam Limitations: No limitations - Personal History Current Tetanus/Diphtheria Vaccine: Yes Current Tetanus Diphtheria and Acellular Pertussis (TDAP): Unsure Tetanus Vaccine Date: within 10 years - Medical/Surgical History Hx Asthma: No Hx Chronic Respiratory Disease: No Hx Diabetes: No Hx Cardiac Disease: No Hx Renal Disease: No Hx Cirrhosis: No Hx Alcoholism: No Hx HIV/AIDS: No Hx Splenectomy or Spleen Trauma: No Other PMH: Poss R rotator cuff inj since January. TOOTH REMOVAL -- AT HALF-WAY. Acid reflux, Chronic UTI, urethral blockage - Family History Significant Family History: No pertinent family hx - Social History Smoking Status: Heavy smoker - Physical Exam Exam: 52-year-old male Alert and oriented no acute distress nontoxic appearance, afebrile Atraumatic normocephalic Neck no JVD right ear with cerumen, no erythema, no drainage Lungs clear to auscultation, no respiratory distress Heart regular rate and rhythm Extremities no cyanosis clubbing edema skin scattered on arms, leg, scalp round erythematous lesions with central crusting no drainage, no lymphangitic streaks Constitutional: Initial Vital Signs Temperature (C) 36.6 C 02/28/18 22:56 Heart Rate 88 02/28/18 22:56 Respiratory Rate 16 02/28/18 22:56 Blood Pressure 125/74 H 02/28/18 22:56 O2 Sat (%) 95 02/28/18 22:56 O2 Delivery Mode Room Air Allergies/Adverse Reactions: haloperidol [From Haldol] Allergy (Severe, Verified 02/28/18 22:58) Pt reports tongue swelling haloperidol lactate [From Haldol] Allergy (Severe, Verified 02/28/18 22:58) Pt reports tongue swelling Home Medications: Medication Instructions Recorded Clindamycin HCl [Clindamycin] 300 mg PO TID 10 Days #30 cap 02/28/18 Medical Decision Making ED Course/Re-evaluation: Patient seen and evaluated for rash of several months duration, waxing and waning. Impression MRSA Folliculitis versus skin popping, versus other/self inoculation right ear with cerumen Plan Clindamycin, first dose in ED rx for 10 days advise follow up with regular clinic otc ear wax softener recommended Differential Diagnosis: Differential diagnosis considered but not limited to Folliculitis, infected insect bite, MRSA self inoculation - Data Points Medications Given: Discontinued Medications Clindamycin (Clindamycin) 150 mg PO EDNOW ONE PRN Reason: Protocol Stop: 02/28/18 23:12 Last Admin: 02/28/18 23:37 Dose: 150 mg Diphenhydramine HCl (Benadryl) 50 mg PO EDNOW ONE Stop: 02/28/18 23:32 Last Admin: 02/28/18 23:37 Dose: 50 mg Departure - Departure Disposition: Home, Routine, Self-Care Clinical Impression: Folliculitis, MRSA (methicillin resistant Staphylococcus aureus) Condition: Good Instructions: MRSA (Methicillin-Resistant Staphylococcus Aureus) (ED) Referrals: NONE *PRIMARY CARE P,. [Primary Care Provider] - As per Instructions Prescriptions: Clindamycin HCl [Clindamycin] 300 mg PO TID 10 Days #30 cap
[2018-02-28] MEDS ORDERED: diphenhydrAMINE 25 MG CAP PO ONE ×2 (23:31)
== END 2018-02-28 23:40 | disposition home or self-care (01) ==
LOC: CED 22:34
DX: L73.9 Follicular disorder, unspecified (principal); A49.02 Methicillin resistant Staphylococcus aureus infection, unspecified site
CPT/HCPCS: 99283-ER